=== PATIENT | female | born 1965 | race Caucasian/White ===

== ENCOUNTER 2018-05-01 07:47 | Inpatient (IN) ==
--- NOTE | 2018-05-01 08:09 | ED ---
HPI General Chief Complaint: Abdominal Pain Stated Complaint: abd pain Time Seen by Provider: 05/01/18 08:02 Source: patient Mode of arrival: ambulatory Limitations: no limitations History of Present Illness HPI narrative: 52-year-old female presents with right upper quadrant abdominal pain intermittent since . She states and July she went to an urgent care and they told her she was having a gallbladder attack. In September she had an outpatient ultrasound that she does not know the results of but they set her up with follow-up with a general surgeon. She has not gone to a surgeon yet as it had stopped bothering her. She states no other concurrent complaints. She denies any modifying factors. She denies any migration of the pain. Quality is sharp. Severity is moderate. Related Data Allergies Allergy/AdvReac Type Severity Reaction Status Date / Time No Known Allergies Allergy Verified 05/01/18 08:06 Review of Systems ROS: all other systems reviewed are negative PMFSH History History Provided By: Patient (Patient denies medical history other than surgery for an ectopic multiple years ago) Medical History Medical History Ectopic (Acute) Social History Social History Substance History: No History of Abuse Second Hand Smoke Exposure: Yes Smoking Status: Current every day smoker Tobacco Type: Cigarettes How Often Do You Have a Drink Containing Alcohol: Never Recent Out of Country Travel within the Last 8 Weeks: No Immunization History Tetanus Immunization: >5 Years Exam Narrative Exam Narrative: GENERAL: 52 y/o female in no apparent distress SKIN: Focused skin assessment warm/dry. HEAD: Atraumatic. Normocephalic. EYES: Pupils equal and round. No scleral icterus. No injection or drainage. ENT: No nasal bleeding or discharge. Mucous membranes pink and moist. NECK: Trachea midline. CARDIOVASCULAR: Regular rate and rhythm. RESPIRATORY: No accessory muscle use. Clear to auscultation. Breath sounds equal bilaterally. GASTROINTESTINAL: Abdomen soft, ttp in ruq, nondistended. MUSCULOSKELETAL: No obvious deformities. No clubbing. No cyanosis. No edema. NEUROLOGICAL: Awake and alert. Motor grossly within normal limits. Normal speech. PSYCHIATRIC: Appropriate mood and affect; insight and judgment normal. Course Reevaluation(s) Reevaluation #1: Patient updated, given Emil agrees to admission Consultations Consultation #1: dr hicks requests admit to medicine, continue antibiotics , npo after midnight, clear liquid if can tolerate now Consultation #2: dr drake agrees to admit Initial Documented Vital Signs Temperature 97.8 F 05/01/18 07:49 Pulse Rate 96 H 05/01/18 07:49 Respiratory Rate 16 05/01/18 07:49 Blood Pressure 114/56 L 05/01/18 07:49 Pulse Oximetry 98 05/01/18 07:49 Last Documented Vital Signs Temperature 97.8 F 05/01/18 07:49 Pulse Rate 92 H 05/01/18 07:52 Respiratory Rate 18 05/01/18 07:52 Blood Pressure 109/67 05/01/18 07:52 Pulse Oximetry 98 05/01/18 07:52 Medical Decision Making MDM Narrative Medical decision making narrative: Will check blood work, urinalysis, ultrasound and reevaluate Medical Screen Exam Complete: Yes Emergency Medical Condition: Yes Differential Diagnosis Differential Diagnosis: Cholelithiasis, cholecystitis, pancreatitis, gastritis Lab Data Lab results reviewed: Yes I reviewed the patient's lab results. Result diagrams: 05/01/18 08:11 05/01/18 08:11 Lab Results 05/01/18 05/01/18 05/01/18 Range/Units 08:10 08:11 08:11 WBC 12.7 H (4.0-11.0) th/mm3 RBC 4.48 (4.00-5.30) mil/mm3 Hgb 13.6 (11.6-15.3) gm/dL Hct 40.8 (35.0-46.0) % MCV 91.1 (80.0-100.0) fL MCH 30.5 (27.0-34.0) pg MCHC 33.4 (32.0-36.0) % RDW 14.8 (11.6-17.2) % Plt Count 223 (150-450) th/mm3 MPV 8.7 (7.0-11.0) fL Neut % (Auto) 71.4 H (16.0-70.0) % Lymph % (Auto) 18.6 (9.0-44.0) % Beckham % (Auto) 7.6 (0.0-8.0) % Eos % (Auto) 1.9 (0.0-4.0) % Baso % (Auto) 0.5 (0.0-2.0) % Neut # (Auto) 9.1 H (1.8-7.7) th/mm3 Lymph # (Auto) 2.4 (1.0-4.8) th/mm3 Beckham # (Auto) 1.0 H (0.0-0.9) th/mm3 Eos # (Auto) 0.2 (0.0-0.4) th/mm3 Baso # (Auto) 0.1 (0.0-0.2) th/mm3 WBC Differential . Differential Comment Auto diff final Sodium 138 (136-145) meq/L Potassium 4.2 (3.5-5.1) meq/L Chloride 105 (98-107) meq/L Carbon Dioxide 25.3 (21.0-32.0) meq/L Anion Gap 8 (5-15) meq/L BUN 17 (7-18) mg/dL Creatinine 0.93 (0.50-1.00) mg/dL Estimated GFR 63 L (>89) mL/min Random Glucose 123 H (74-106) mg/dL Calcium 8.8 (8.5-10.1) mg/dL Magnesium 2.2 (1.5-2.5) mg/dL Total Bilirubin 0.5 (0.2-1.0) mg/dL AST 25 (15-37) U/L ALT 30 (10-53) U/L Alkaline Phosphatase 105 (45-117) U/L Total Protein 8.4 H (6.4-8.2) g/dL Albumin 3.7 (3.4-5.0) g/dL Lipase 121 (73-393) U/L Urine Color Dionne (Yellw/Straw) Urine Clarity Cloudy H (Clear) Urine pH 5.0 (5.0-8.5) Ur Specific [place] 1.026 (1.002-1.035) Urine Protein 30 H (Neg-Trace) mg/dL Urine Glucose (UA) Negative (Negative) mg/dL Urine Ketones Negative (Negative) mg/dL Urine Occult Blood Small H (Negative) Urine Nitrate Negative (Negative) Urine Bilirubin Negative (Negative) Urine Ictotest Negative (Negative) Urine Urobilinogen Less than 2 (Less than 2) mg/dL Ur Leukocyte Esterase Moderate H (Negative) Urine RBC 3 (0-3) /hpf Urine WBC 11 H (0-5) /hpf Ur Squamous Epith Cells 19 (0-5) /hpf Urine Bacteria Moderate H (None) /hpf Hyaline Casts 20 (0-3) /lpf Urine Mucus Few H (Occasional) /lpf Micro UA Comment Culture indicated Ur Microscopic Review Not Reportable Urine Culture Comments Culture indicated Imaging Data Attestation: I personally reviewed and interpreted this imaging study as follows : Radiologist's impression: Gallbladder Ultrasound 05/01/18 07:57 CONCLUSION: 1. Hepatomegaly and hepatic steatosis. 2. Cholelithiasis, gallbladder wall thickening, pericholecystic fluid, and findings characteristic of adenomyomatosis. Cholecystitis is suspected given the findings. Discharge Plan Discharge Disposition Patient Disposition: 30 Still Patient Discharge Details Diagnosis: Acute cholecystitis Physicians Team ED Provider: Julisa Andrews Primary Care Provider: Taj Weber Attending Provider: Nithya Drake Other Providers: Ronald Hicks Status ED Status: Admitted Patient
[2018-05-01 08:22] LABS: Baso # (Auto) 0.1 th/mm3 (0.0-0.2); Baso % (Auto) 0.5 % (0.0-2.0); Eos # (Auto) 0.2 th/mm3 (0.0-0.4); Eos % (Auto) 1.9 % (0.0-4.0); Hematocrit 40.8 % (35.0-46.0); Hemoglobin 13.6 gm/dL (11.6-15.3); Lymph # (Auto) 2.4 th/mm3 (1.0-4.8); Lymph % (Auto) 18.6 % (9.0-44.0); Mean Corpuscular HGB Conc 33.4 % (32.0-36.0); Mean Corpuscular Hemoglobin 30.5 pg (27.0-34.0); Mean Corpuscular Volume 91.1 fL (80.0-100.0); Mean Platelet Volume 8.7 fL (7.0-11.0); Mono % (Auto) 7.6 % (0.0-8.0); Neut # (Auto) 9.1 th/mm3 (1.8-7.7); Neut % (Auto) 71.4 % (16.0-70.0); Platelet Count 223 th/mm3 (150-450); Red Blood Count 4.48 mil/mm3 (4.00-5.30); Red Cell Distribution Width 14.8 % (11.6-17.2); White Blood Count 12.7 th/mm3 (4.0-11.0)
[2018-05-01 08:28] LABS: Bacteria,Urine Moderate /hpf; Clarity,Urine Cloudy (Clear); Color,Urine Amber (Yellw/Straw); Glucose,Urine (UA) Negative (Negative); Hyaline Casts,Urine 20 /lpf (0-3); Leukocyte Esterase,Urine Moderate (Negative); Mucus,Urine Few /lpf (Occasional); Nitrite,Urine Negative (Negative); Specific Gravity,Urine 1.026 (1.002-1.035); Squamous Epithelial Cell,Urine 19 /hpf (0-5)
[2018-05-01 08:30] LABS: Bilirubin,Urine Negative (Negative); Ictotest,Urine Negative (Negative)
[2018-05-01 08:42] LABS: Alkaline Phosphatase 105 U/L (45-117); Total Protein 8.4 g/dL (6.4-8.2)
[2018-05-01 08:44] LABS: Alanine Aminotransferase 30 U/L (10-53); Albumin 3.7 g/dL (3.4-5.0); Anion Gap 8 meq/L (5-15); Aspartate Aminotransferase 25 U/L (15-37); Blood Urea Nitrogen 17 mg/dL (7-18); Calcium 8.8 mg/dL (8.5-10.1); Carbon Dioxide 25.3 meq/L (21.0-32.0); Chloride 105 meq/L (98-107); Glomerular Filtration Rate 63 mL/min (>89); Glucose,Random 123 mg/dL (74-106); Lipase 121 U/L (73-393); Magnesium 2.2 mg/dL (1.5-2.5); Potassium 4.2 meq/L (3.5-5.1); Sodium 138 meq/L (136-145)
--- NOTE | 2018-05-01 08:46 | US ---
EXAM DATE: 05/01/2018 8:38 AM EST AGE/SEX: 52 years / Female INDICATIONS: Right upper quadrant pain. CLINICAL DATA: This is the patient's initial encounter. Patient reports that signs and symptoms have been present for 2 days and indicates a pain score of 7/10. MEDICAL/SURGICAL HISTORY: . Smoker. . Ectopic . COMPARISON: No prior exams available for comparison. MEASUREMENTS: Liver:__ 18.6 cm. Common Bile Duct:__ 4mm. FINDINGS: Liver: Increased echotexture without focal lesion or ductal dilation. Portal Vein: Hepatopedal flow seen in portal vein. Common Duct: No intraluminal mass or stone visualized. Gallbladder: Gallbladder wall thickening and prominent ringdown artifact along the anterior wall, wa ll thickness up to 9 mm. Cholelithiasis is also seen with a 2.9 cm stone identified. Negative sonogra phic Nguyen's sign. Pericholecystic fluid is noted. Pancreas: The visualized portions are within normal limits Right Kidney: Normal echotexture and cortical thickness. No mass or hydronephrosis. Other: None. CONCLUSION: 1. Hepatomegaly and hepatic steatosis. 2. Cholelithiasis, gallbladder wall thickening, pericholecystic fluid, and findings characteristic o f adenomyomatosis. Cholecystitis is suspected given the findings. Electronically signed by: Ran Elizabeth MD 05/01/2018 8:44 AM EST
[2018-05-01] MEDS ORDERED: Piperacil/Tazo 3.375 GM Premix 50 ML IV.SIG ONE (09:13)
[2018-05-01] MEDS ORDERED: Zolpidem Tartrate 5 MG Tablet PO PRN ×2 (09:46→21:00)
[2018-05-01] MEDS ORDERED: Bisacodyl 10 MG Supp RECTAL PRN (09:46)
[2018-05-01] MEDS ORDERED: Acetaminophen 325 MG Tablet PO PRN (09:46)
[2018-05-01] MEDS ORDERED: Morphine Inj 4 MG/ML Vial IV.PUSH PRN (09:49)
--- NOTE | 2018-05-01 09:51 | P.HPIM ---
History of Present Illness Primary Care Physician: Taj Weber DO History of Present Illness: 52 year old female with hypothyroidism presenting with RUQ pain x 2 days. She states around midnight three nights ago she woke up from sleep with abrupt onset RUQ pain that was constant, sharp, and rated 10/10 for about six hours. The pain eased up after this point but has still been present. Presently pain is 4/10 and described as dull. She had some nausea and vomiting initially that has since resolved. She denies fever, chills, diarrhea, chest pain, or shortness of breath. She states back in July she had a gallbladder attack that was short-lived and not as severe. She was told to follow-up with a surgeon but hasn't done so yet. PMHx: hypothyroidism Surgical hx: ectopic Family hx: mother, grandmother, and aunt all had nonprovoked DVTs Social hx: lives with , works as a PATCH [employer], denies EtOH, smokes 1PPD (x30 years), denies recreational drug use Inpatient Certification I certify that the inpatient services were ordered in accordance with Medicare regulations governing the order. This includes certification that hospital inpatient services are reasonable and necessary and in the case of services not specified as inpatient-only under 42 CFR 419.22(n), that they are appropriately provided as inpatient services in accordance to with the 2-midnight benchmark under 43 CFR 412.3(e) - Diagnosis (1) Acute cholecystitis Review of Systems All other systems reviewed negative except as stated in [facility] - History History Provided By: Patient (Patient denies medical history other than surgery for an ectopic multiple years ago) - Medical History Medical History: Medical History (Last Updated 05/01/18 @ 10:20 by Nithya Roe MD) Hypothyroidism (acquired) - Surgical History Surgical History: Surgical History (Last Updated 05/01/18 @ 10:20 by Nithya Roe MD) Ectopic - Family History Family History: Family History (Last Updated 05/01/18 @ 10:20 by Nithya Roe MD) Mother DVT (deep venous thrombosis) - Social History I have reviewed the patient's Social History: Yes - Tobacco History Second Hand Smoke Exposure: Yes Tobacco Use In Past 30 Days: Yes Smoking Status: Current every day smoker Tobacco Type: Cigarettes - Alcohol History How Often Do You Have a Drink Containing Alcohol: Never - Substance Use History Substance History: No History of Abuse - Travel History Recent Travel Out of the Country Within the Last 8 Weeks: No - Immunization History Tetanus Immunization: >5 Years Medications and Allergies Active Medications: Active Medications Sodium Chloride (Ns Flush) 2 ml IV.FLUSH PRN PRN PRN Reason: FLUSH AFTER USING IV ACCESS Allergies Allergy/AdvReac Type Severity Reaction Status Date / Time No Known Allergies Allergy Verified 05/01/18 08:06 Exam Vital signs: Vital Signs 05/01/18 07:49 05/01/18 07:52 Temperature 97.8 F Pulse Rate 96 H 92 H Respiratory Rate 16 18 Blood Pressure 114/56 L 109/67 Pulse Oximetry 98 98 Intake & Output 04/30/18 05/01/18 05/01/18 18:59 06:59 18:59 Weight 77.111 kg Narrative: GENERAL: WN, WD female resting in bed in [employer]. SKIN: Warm and dry. No jaundice. HEENT: AT/NC. Pupils equal and round. No scleral icterus. MMM. NECK: Supple no tender LAD or JVD. HEART: RRR no m/r/g. LUNGS: CTAB without wheezes or crackles. ABDOMEN: +BS, soft, ND, RUQ TTP. EXTREMITIES: No LE edema. 2+ pedal pulses. Calves supple and nontender. NEURO: Awake and alert. Nonfocal. PSYCH: Appropriate mood and affect. Results - Labs CBC & Chem 7: 05/01/18 08:11 05/01/18 08:11 Labs: Short CBC 05/01/18 Range/Units 08:11 WBC 12.7 H (4.0-11.0) th/mm3 Hgb 13.6 (11.6-15.3) gm/dL Hct 40.8 (35.0-46.0) % Plt Count 223 (150-450) th/mm3 BMP 05/01/18 08:11 Sodium 138 Potassium 4.2 Chloride 105 Carbon Dioxide 25.3 BUN 17 Creatinine 0.93 Calcium 8.8 Liver Function 05/01/18 Range/Units 08:11 Total Bilirubin 0.5 (0.2-1.0) mg/dL AST 25 (15-37) U/L ALT 30 (10-53) U/L Alkaline Phosphatase 105 (45-117) U/L Albumin 3.7 (3.4-5.0) g/dL Urine 05/01/18 Range/Units 08:10 Urine Color Dionne (Yellw/Straw) Urine Clarity Cloudy H (Clear) Urine pH 5.0 (5.0-8.5) Ur Specific [place] 1.026 (1.002-1.035) Urine Protein 30 H (Neg-Trace) mg/dL Urine Glucose (UA) Negative (Negative) mg/dL - Imaging Impressions Gallbladder Ultrasound 05/01/18 07:57 CONCLUSION: 1. Hepatomegaly and hepatic steatosis. 2. Cholelithiasis, gallbladder wall thickening, pericholecystic fluid, and findings characteristic of adenomyomatosis. Cholecystitis is suspected given the findings. Caprini VTE Risk Assessment Caprini VTE Risk Assessment: Moderate/High Risk (score >= 2) Caprini Risk Assessment Model: Point Value = 1 Point Value = 2 Point Value = 3 Point Value = 5 Age 41-60 Minor surgery BMI > 25 kg/m2 Swollen legs Varicose veins or History of unexplained or recurrent spontaneous Oral contraceptives or hormone replacement Sepsis (< 1 month) Serious lung disease, including pneumonia (< 1 month) Abnormal pulmonary function Acute myocardial infarction Congestive heart failure (< 1 month) History of inflammatory bowel disease Medical patient at bed rest Age 61-74 Arthroscopic surgery Major open surgery (> 45 min) Laparoscopic surgery (> 45 min) Malignancy Confined to bed (> 72 hours) Immobilizing plaster cast Central venous access Age >= 75 History of VTE Family history of VTE Factor V Leiden Prothrombin [id number] Lupus anticoagulant Anticardiolipin antibodies Elevated serum homocysteine Heparin-induced thrombocytopenia Other congenital or acquired thrombophilia Stroke (< 1 month) Elective arthroplasty Hip, pelvis, or leg fracture Acute spinal cord injury (< 1 month) Prophylaxis Regimen: Total Risk Factor Score Risk Level Prophylaxis Regimen 0-1 Low Early ambulation 2 Moderate Order ONE of the following: *Sequential Compression Device (SCD) *Heparin 5000 units SQ BID 3-4 Higher Order ONE of the following medications: *Heparin 5000 units SQ TID *Enoxaparin/Lovenox 40 mg SQ daily (WT < 150 kg, CrCl > 30 mL/min) *Enoxaparin/Lovenox 30 mg SQ daily (WT < 150 kg, CrCl > 10-29 mL/min) *Enoxaparin/Lovenox 30 mg SQ BID (WT < 150 kg, CrCl > 30 mL/min) AND/OR *Sequential Compression Device (SCD) 5 or more Highest Order ONE of the following medications: *Heparin 5000 units SQ TID (Preferred with Epidurals) *Enoxaparin/Lovenox 40 mg SQ daily (WT < 150 kg, CrCl > 30 mL/min) *Enoxaparin/Lovenox 30 mg SQ daily (WT < 150 kg, CrCl > 10-29 mL/min) *Enoxaparin/Lovenox 30 mg SQ BID (WT < 150 kg, CrCl > 30 mL/min) AND *Sequential Compression Device (SCD) Assessment and Plan - Assessment (1) Acute cholecystitis Code(s): K81.0 - Acute cholecystitis Status: Acute - Plan 52 year old female admitted for acute cholecystitis. 1. Acute cholecystitis - Mild leukocytosis with WBC 12.7 - GB U/S with cholelithiasis, GB wall thickening, and pericholecystic fluid. Negative sono Nguyen sign - NPO - LR at 100 ml/hr - Pain control - Antiemetics - Zosyn - Consult general surgery 2. Possible UTI - Not symptomatic but U/A with moderate luekocyte esterase, though 9 squams - Will follow culture - On Zosyn as above 2. Hypothyroidism - Not currently on any replacement - To f/u as outpatient DVT prophylaxis: SCDs Code Status: FULL Discussed Condition With: Patient and Dr. Andrews
[2018-05-01 13:59] VITALS: BP 114/65; PULSE 77; RESP 16; TEMP 98; O2SAT 96
[2018-05-01] MEDS ORDERED: Piperacil/Tazo 3.375 GM Premix 50 ML IV.SIG SCH (15:00)
[2018-05-01] MEDS ORDERED: Senna/Docusate Sodium 8.6/50 MG Tablet PO SCH (21:00)
--- NOTE | 2018-05-02 01:47 | MB ---
cc: Ronald Stapleton MD DATE: 05/01/2018 PERSON REQUESTING CONSULTATION: Nithya Roe MD REASON FOR CONSULTATION: Possible acute cholecystitis. HISTORY OF PRESENT ILLNESS: The patient is a 52-year-old female with a known history of gallstones and gallbladder symptoms, who presented to the emergency department for right upper quadrant pain after eating a fatty meal. The patient underwent evaluation in the emergency department and was found to have elevated white blood cell count, as well as an ultrasound that showed pericystic fluid, concerns for early acute cholecystitis. The patient was recommended to undergo admission by the emergency room physician. The patient was ultimately admitted to the medicine service. The patient after being admitted to medicine service stated that she refused to be admitted and would like to be discharged. General surgery consulted internal medicine service for recommendations. The patient states her pain is present, but decreasing since she presented. The pain is exactly like her previous episodes of gallbladder pain. She has yet to followup with a surgeon, although she was recommended to followup with surgery for cholecystectomy. She denies fevers, chills, night sweats, nausea, vomiting, constipation, diarrhea or any other GI complaints. She states she is able to tolerate a low fat diet without pain. REVIEW OF SYSTEMS: A 12-point review of systems was conducted with the patient and is negative except for the pertinent positives mentioned above in the history of present illness. ALLERGIES: NONE. HOME MEDICATIONS: None. PAST SURGICAL HISTORY: Lower midline incision for ectopic . PAST MEDICAL HISTORY: Gallstones as above, otherwise negative. SOCIAL HISTORY: The patient is a current daily smoker, half pack a day. She denies alcohol, illicit drug use or any history of abuse. FAMILY HISTORY: Reviewed and noncontributory. PHYSICAL EXAMINATION: VITAL SIGNS: Blood pressure 114/56, heart rate 96, respiration rate 16, temperature 97.8 degrees, O2 saturation 98%. GENERAL: The patient is a well-developed, well-nourished female, who appears not in any pain or any distress. HEENT: Head is normocephalic, atraumatic. Pupils round, reactive and accommodating to light. Sclerae are anicteric. Oral cavity is clear. NECK: Supple. No JVD. No lymphadenopathy. LUNGS: Breath sounds are present bilaterally. Nonlabored breathing pattern. HEART: Regular rate and rhythm. No murmurs. ABDOMEN: Soft, some subjective tenderness in the right upper quadrant without Nguyen sign. Lower midline scar is well healed without hernia. No peritonitis or rebound tenderness. Normal bowel sounds. BACK: No CVA tenderness. EXTREMITIES: No clubbing, cyanosis or edema. NEUROLOGIC: The patient is alert and oriented x4. Mood, judgment and insight are intact. Nonfocal peripheral exam. Cranial nerves are grossly within normal limits. LABORATORY VALUES: White blood cell count 12.7, hemoglobin 13.6. IMAGING: Ultrasound of the gallbladder does show gallbladder wall thickening with pericystic fluid, concerning for cholecystitis. ASSESSMENT AND PLAN: The patient is a 52-year-old female with mild acute cholecystitis. The patient states she was admitted, although she refused admission, per her report. I recommended to the patient that she remain admitted and on antibiotics for a planned cholecystectomy in the next 24-48 hours for treatment of her acute cholecystitis. She states that she wants to go home and perform the surgery electively and declines inpatient admission or inpatient surgery at this time. Due to the patient with mild acute cholecystitis and the patient being able to tolerate diet with no major medical comorbidities, I felt this was a reasonable course of action, although there is increased risk of worsening of her condition or worsening outcome if she were to be discharged. The patient states she understands these risks and would like to be discharged and treated nonoperatively. We will prescribe antibiotics and discharge the patient home at this time. The patient will follow up with me for cholecystectomy. My contact information was provided to the patient. Thank you very much for this consultation. MD TAMMI Springer/ramu , 11:08 PM , 11:17 PM
== END 2018-05-01 14:15 | disposition home or self-care (01) ==
LOC: NEPC 07:47 → NEDA 09:45 → N06 11:44
PROVIDERS: ADMIT Family Medicine; ATTEND Family Medicine